=== PATIENT | male | born 1970 | race Caucasian/White ===

== ENCOUNTER 2017-09-20 10:43 | Emergency (ER) | payer SELFPAY ==
[~2017-09-20] VITALS: Ht 170.2 cm; Wt 57.6 kg
[2017-09-20 10:46] VITALS: Ht 170.2 cm; Wt 57.6 kg
[2017-09-20 11:12] LABS: PLATELET COUNT 226 x10^3mcL (130-400); RED CELL DISTRIBUTION WIDTH 13.1 % (11.5-14.5)
[2017-09-20 11:19] LABS: BASOPHIL % 0 % (0-2)
[2017-09-20 11:43] LABS: ALBUMIN 3.7 g/dL (3.4-5.0); ALKALINE PHOSPHATASE 86 U/L (46-116); ALT/SGPT 35 U/L (16-63); AST/SGOT 157 U/L (15-37); BILIRUBIN TOTAL 0.9 mg/dL (0.20-1.00); CALCIUM 8.9 mg/dL (8.5-10.1); CARBON DIOXIDE 25.9 mmol/L (21-32); CHLORIDE SERUM 96 mmol/L (98-107); CREATININE SERUM 1.2 mg/dL (0.7-1.3); GFR1 > 60 mL/min; POTASSIUM SERUM 5.1 mmol/L (3.5-5.1); SODIUM SERUM 131 mmol/L (136-145); TOTAL PROTEIN, SERUM 7.3 g/dL (6.4-8.2)
[2017-09-20 11:46] LABS: GLUCOSE SERUM 488 mg/dL (74-106)
[2017-09-20 12:39] VITALS: BP 133/77
== END 2017-09-20 12:39 | disposition short-term general hospital (02) ==
LOC: ED 10:43
PROVIDERS: Emergency Medicine
DX: I21.19 ST elevation (STEMI) myocardial infarction involving other coronary artery of inferior wall (principal); E11.9 Type 2 diabetes mellitus without complications
CPT/HCPCS: 83880; J1644; J1815; J2270; J2405; J7030

== ENCOUNTER 2018-08-22 21:55 | Emergency (ER) | payer OTHER ==
[~2018-08-22] VITALS: Ht 162.6 cm; Wt 64.4 kg
[2018-08-22 22:03] VITALS: Ht 162.6 cm; Wt 64.4 kg
[2018-08-23 02:14] LABS: BASOPHIL % 0.5 % (0-2); PLATELET COUNT 244 x10^3mcL (130-400); RED CELL DISTRIBUTION WIDTH 13.2 % (11.5-14.5)
[2018-08-23 07:59] VITALS: BP 125/55
== END 2018-08-23 07:59 | disposition home or self-care (01) ==
LOC: ED 21:55
PROVIDERS: Emergency Medicine
DX: K06.8 Other specified disorders of gingiva and edentulous alveolar ridge (principal); I10 Essential (primary) hypertension; E11.9 Type 2 diabetes mellitus without complications
CPT/HCPCS: 36415